=== PATIENT | male | born 1945 | race Caucasian/White ===

== ENCOUNTER 2024-08-02 10:23 | Day surgery (SDC) | payer MEDICARE ==
[~2024-08-02 10:23] MED LIST: Midazolam 1 MG/ML 2 ML SDV ONE; Propofol 200 MG/20 ML SDV ONE; Sodium Chloride 0.9% 10 ML Syringe FLUSH PRN
[2024-08-02] MEDS: Lactated Ringers 1,000 ML IV SCH (10:50)
== END 2024-08-02 13:20 | disposition home or self-care (01) ==
LOC: LL.SDS 10:23
PROVIDERS: ATTEND Surgery
DX: C18.0 Malignant neoplasm of cecum (principal); D50.9 Iron deficiency anemia, unspecified; R19.5 Other fecal abnormalities; I10 Essential (primary) hypertension; E78.5 Hyperlipidemia, unspecified; E05.20 Thyrotoxicosis with toxic multinodular goiter without thyrotoxic crisis or storm; Z79.899 Other long term (current) drug therapy
CPT/HCPCS: 00811; 99100; J2250; J2704; J7120

== ENCOUNTER 2024-09-27 07:59 | Day surgery (SDC) | payer MEDICARE ==
[~2024-09-27 07:59] MED LIST changes: -Sodium Chloride 0.9% 10 ML Syringe FLUSH PRN
[2024-09-27] MEDS ORDERED: Sodium Chloride 0.9% 10 ML Syringe FLUSH PRN (08:00)
[2024-09-27] MEDS: Lactated Ringers 1,000 ML IV SCH (08:27)
[2024-09-27] MEDS ORDERED: Glycopyrrolate 0.2 MG/ML SDV IVPUSH ONE (14:45)
== END 2024-09-27 11:04 | disposition home or self-care (01) ==
LOC: LL.SDS 07:59
PROVIDERS: ATTEND Surgery
DX: Z12.11 Encounter for screening for malignant neoplasm of colon (principal); R19.5 Other fecal abnormalities; D12.0 Benign neoplasm of cecum; D12.2 Benign neoplasm of ascending colon; K21.00 Gastro-esophageal reflux disease with esophagitis, without bleeding; Z86.0100 Personal history of colon polyps, unspecified; I10 Essential (primary) hypertension
CPT/HCPCS: 00813; 99100; J1596; J2250; J2704; J7120